=== PATIENT | male | born 1955 | race Caucasian/White ===

== ENCOUNTER 2023-04-07 10:26 | Outpatient (AMB) | payer OTHER, SELFPAY ==
--- NOTE | 2023-04-07 10:26 | MHC.PC.OV ---
Vital Signs 04/07/23 10:27 Height 5 ft 5 in Weight 204 lb BMI 33.9 BP 166/84 H Blood Pressure Location Lt brachial Position Sitting Pulse 61 Pulse Source Pulse Oximeter Pulse Oximetry (%) 97 Oxygen Delivery Method Room Air Intake Visit Reasons: Pain in L foot Intake Note: pt states left foot pain since yesterday, pt states swelling, redness and pain due to possible gout flare up. [employer] Vice [employer] Required: No Allergies No Known Allergies Allergy (Verified 04/07/23 10:53) Medication List - Last Reconciled 04/07/23 by Zenobia Bhakta, [facility]- allopurinol 300 mg PO DAILY atorvastatin 20 mg PO DAILY losartan 50 mg PO BEDTIME losartan 25 mg PO DAILY metoprolol succinate ER 50 mg PO DAILY Tobacco use date assessed: 04/07/23 Fall risk assessment: No Falls in past year Last assessed Fall Risk: 04/07/23 Dental Screening Dental Screen Date: 04/07/23 HPI HPI Comments History of Present Illness Details Here with c/o pain in left foot started 2 days ago worse since onset He did hit his foot around the same time of the onset of pain Admits gout - with frequent flares. Last one 10/2022 Shoes and anything that touches his foot causes pain. Feels he also has been eating a high purine diet No at home remedies. Denies fever, chills. [facility] Social History Housing: [place] Patient Tobacco Use Status: Current someday Tobacco user Tobacco use type: Cigar service: No Current occupational status: previously employed Cognitive needs: No Hearing needs: No Vision needs: No Questionnaire PHQ-9 Over the last 2 weeks, how often have you been bothered by any of the following problems? 1. Little interest or pleasure in doing things: not at all 2. Feeling down, depressed, or hopeless: not at all 3. Trouble falling or staying asleep, or sleeping too much: not at all 4. Feeling tired or having little energy: not at all 5. Poor appetite or overeating: not at all 6. Feeling bad about yourself - or that you are a failure or have let yourself or your family down: not at all 7. Trouble concentrating on things, such as reading the newspaper or watching television: not at all 8. Moving or speaking so slowly that other people could have noticed. Or the opposite - being so fidgety or restless that you have been moving around a lot more than usual: not at all 9. Thoughts that you would be better off or of hurting yourself in some way: not at all Total score: 0 Depression Screening Interpretation: Negative Depression Screening Done: Yes Source: Developed by Drs. Willam Yousif, Jarrod Howell and colleagues, with an educational raeann from [employer]. Thrive Questionnaire Date Thrive assessed: 04/07/23 AUDIT C Alcohol Use Questionnaire (AUDIT-C) 1. How often do you have a drink containing alcohol?: 2-3 times a week 2. How many drinks containing alcohol do you have on a typical day when you are drinking?: 3 or 4 3. How often do you have six or more drinks on one occasion?: Never Total Score: 4 VALERY-7 AMB Questionnaire VALERY-7 Date VALERY - 7 assessed: 04/07/23 Feeling nervous, anxious, or on edge: 0 = Not at all Not being able to stop or control worryin = Not at all Worrying too much about different things: 0 = Not at all Trouble relaxin = Not at all Being so restless that it is hard to sit still: 0 = Not at all Becoming easily annoyed or irritable: 0 = Not at all Feeling afraid as if something awful might happen: 0 = Not at all Total VALERY-7 score (0-4 normal; 5-9 mild; 10-14 moderate; 15-21 severe): 0 Source: Developed by Drs. Willam Yousif, Criss Gonzales, Jarrod Hartley and colleagues, with an educational raeann from [employer]. Review of Systems Const All systems reviewed & are unremarkable except as noted in HPI and below Physical exam (Primary Care) Vital Signs: Last Vital Signs Pulse 61 04/07/23 10:27 BP 166/84 H 04/07/23 10:27 Pulse Ox 97 04/07/23 10:27 Oxygen Delivery Method Room Air 04/07/23 10:27 BMI result Body Mass Index 33.9 Tobacco/Smoking Status: Tobacco use Status Tobacco use date assessed 04/07/23 04/07/23 10:29 Patient Tobacco Use Status Current someday Tobacco 04/07/23 10:37 Tobacco use type Cigar 04/07/23 10:37 PHQ-9: PHQ-9 Score PHQ-9: Total score 0 04/07/23 10:42 Depression Screening Interpretation: Negative Thrive Assessment: Date of Thrive Assessment Date Thrive assessed 04/07/23 04/07/23 10:29 Extrem Ankle/foot/toe images: 1. erythema, edema, pain with light touch skin intact Assessment and Plan Assessment & Plan (1) Gout of left foot: Code(s): M10.9 - Gout, unspecified Qualifiers: Chronicity: acute Gout etiology: other secondary cause Qualified Code(s): M10.472 - Other secondary gout, left ankle and foot Medications: New colchicine TAKE 2 TABS PO X 1 THEN 1 TAB PO 1 HOUR LATER. MAX 1.8MG repeat dose in 72 hours if no effect from first round. 0.6 mg PO .additional sig 2 days 6 caps 0RF Patient Instructions: Continue allopurinol Take colchicine as directed. Education provided on low purine diet and had prevent gout. Educated and reasons to seek additional care. If this continues to be more of a chronic issue should follow up with primary care team. Coding Level of Care Code Est Pt Level 3 ([id number]) Diagnoses Other secondary acute gout of left foot M10.472 Chronicity: acute Gout etiology: other secondary cause
[2023-04-07 10:27] VITALS: BP 166/84; PULSE 61; O2SAT 97; BMI 33.9
== END 2023-04-07 11:00 | disposition home or self-care (01) ==
PROVIDERS: Visit Provider Nurse Practitioner Family
DX: M10.472 Other secondary gout, left ankle and foot (principal)
CPT/HCPCS: 99213